=== PATIENT | female | born 1960 | race Caucasian/White ===

== ENCOUNTER → 2018-02-12 | Outpatient (CLI) | payer OTHER ==
[~2018-02-12] MED LIST: ACTOPLUS MET 851 TAB PO; HCTZ; JANUVIA50 MG PO; LISINOPRIL20 MG PO; ZOCOR
== END ==
LOC: MC.RAD 11:39
DX: Z12.31 Encounter for screening mammogram for malignant neoplasm of breast (principal)

== ENCOUNTER → 2018-02-26 | Outpatient (CLI) | payer OTHER | LOC: MC.RAD 13:00 | DX: N63.14 Unspecified lump in the right breast, lower inner quadrant (principal); N63.12 Unspecified lump in the right breast, upper inner quadrant ==

== ENCOUNTER → 2018-03-13 | Outpatient (CLI) | payer OTHER | LOC: MC.RAD 08:58 | DX: N63.12 Unspecified lump in the right breast, upper inner quadrant (principal); Z98.82 Breast implant status ==

== ENCOUNTER → 2020-03-23 | Outpatient (CLI) | payer OTHER | LOC: BHSO 08:48 | DX: R69 Illness, unspecified (principal) ==

== ENCOUNTER → 2021-03-15 | Outpatient (CLI) | payer OTHER ==
[~2021-03-15] MED LIST changes: +ASPIRIN 81M81 MG/TA2 PO; +GLUCOPHAGE500 MG/TAB PO; +HCTZ 25MG TAB25 MG PO; +HUMALOG PEN100 U/ML SQ; +IRON TABLETS325 MG PO; +LANTUS SOLOS100 U/ML SQ; +PRINIVIL40 MG PO; +ZOCOR 80MG80 MG PO
== END ==
LOC: COL.RAD 03-13 07:15
DX: K31.84 Gastroparesis (principal)
CPT/HCPCS: A9541

== ENCOUNTER 2021-08-24 06:05 | Day surgery (SDC) | payer OTHER ==
[~2021-08-24] VITALS: Ht 167.6 cm; Wt 141.6 kg
[~2021-08-24 06:05] MED LIST changes: -ASPIRIN 81M81 MG/TA2 PO; -GLUCOPHAGE500 MG/TAB PO; -HCTZ 25MG TAB25 MG PO; -HUMALOG PEN100 U/ML SQ; -IRON TABLETS325 MG PO; -LANTUS SOLOS100 U/ML SQ; -PRINIVIL40 MG PO; -ZOCOR 80MG80 MG PO
[2021-08-24 06:36] VITALS: BP 137/71; PULSE 78; TEMP 98.1
[2021-08-24] MEDS ORDERED: ASPIRIN 81M81 MG/TA2 PO (06:40)
[2021-08-24] MEDS ORDERED: IRON TABLETS325 MG PO (06:40)
[2021-08-24] MEDS ORDERED: LANTUS SOLOS100 U/ML SQ (06:41)
[2021-08-24] MEDS ORDERED: HCTZ 25MG TAB25 MG PO (06:41)
[2021-08-24] MEDS ORDERED: HUMALOG PEN100 U/ML SQ (06:42)
[2021-08-24] MEDS ORDERED: PRINIVIL40 MG PO (06:43)
[2021-08-24] MEDS ORDERED: GLUCOPHAGE500 MG/TAB PO (06:43)
[2021-08-24] MEDS ORDERED: ZOCOR 80MG80 MG PO (06:43)
[2021-08-24 07:40] VITALS: BP 145/73; PULSE 83; TEMP 97.3
[2021-08-24 07:55] VITALS: BP 138/75; PULSE 72
[2021-08-24 08:10] VITALS: BP 146/72; PULSE 69
--- NOTE | 2021-08-24 08:25 | NUR ---
0740- Pt returns from endo procedure via cart to [facility]. Pt ambulates from cart to recliner with RN assist. Monitors on and alarms set. Call light within reach. Report received from KWESI Lanier. Pt alert and oriented. Pt requests apple juice and muffin. Pt denies any pain or nausea. BG 173. 0755- Pt taking food and drink well. No complications noted. in to speak with pt. 0810- Discharge instructions given to pt. All questions answered to pt and spouse satisfaction. Handed to pt are a thank you card and discharge information. 0801- Pt transferred out of the hospital via wheelchair, to private vehicle driven by spouse.
== END 2021-08-24 08:25 | disposition home or self-care (01) ==
LOC: SDCO 06:05
DX: D12.2 Benign neoplasm of ascending colon (principal); R19.7 Diarrhea, unspecified; I10 Essential (primary) hypertension; M19.90 Unspecified osteoarthritis, unspecified site; E11.9 Type 2 diabetes mellitus without complications; E78.5 Hyperlipidemia, unspecified; Z79.899 Other long term (current) drug therapy; Z79.82 Long term (current) use of aspirin; Z79.84 Long term (current) use of oral hypoglycemic drugs; Z90.89 Acquired absence of other organs
CPT/HCPCS: J2704; J7030